=== PATIENT | female | born 1935 | race Caucasian/White ===

== ENCOUNTER 2016-09-26 14:15 | Emergency (ER) | payer OTHER ==
[~2016-09-26] VITALS: Ht 154.9 cm; Wt 97.3 kg
[~2016-09-26 14:15] MED LIST: ALBUTEROL17 G1 IH; Augmentin PO; BENAZEPRIL HCL40 MG PO; BISOPROLOL-HCT1 EAC1 PO; DICLOFENAC SODI75 MG PO; Diabeta,Micronase PO; ECOTRIN325 MG PO; FUROSEMIDE80 MG PO; GABAPENTIN300 MG PO; GLUMETZA500 M1 PO; JANUMET XR 50-1 EACH PO; Janumet 50/500 PO; KLOR-CON 1010 ME1 PO; LASIX40 MG PO; Micro-K,K-Tab,K-Dur, PO; NEURONTIN300 MG PO; NIASPAN,SLO-N1000 MG PO; NIASPAN500 MG PO; NORVASC10 MG PO; PRAVASTATIN SOD80 MG PO; PRINIVIL20 MG PO; PROVENTIL HFA6.7 GM IH; SIMVASTATIN40 MG PO; TYLENOL EXTRA500 MG PO; VITAMIN D-32000 UNI1 PO; Zebeta PO
[2016-09-26 17:04] LABS: HEMATOCRIT 32.1 % (36.0-46.0); MCH 26.8 PG (29.0-34.0); MCHC 29.9 G/DL (30.0-36.0); MCV 89.7 FL (83-99); MEAN PLAT.VOLUME 10.1 uM^3 (9.5-12.4); PLATELET COUNT 145 K/uL (156-360); RBC DIS.WIDTH-CV 14.8 % (11.8-14.6); RBC DIS.WIDTH-SD 48.2 % (39-53); RED BLOOD COUNT 3.58 M/uL (3.80-5.20); WHITE BLOOD COUNT 5.4 K/uL (4.1-10.2)
[2016-09-26 17:13] LABS: CHLORIDE 107 mEq/L (99-109); POTASSIUM 3.9 mEq/L (3.7-5.4); SODIUM 145 mEq/L (136-147)
[2016-09-26 17:15] LABS: GLUCOSE 190 mg/dL (70-99)
[2016-09-26 17:16] LABS: ANION GAP 12 MEQ/L (2-14)
[2016-09-26 17:19] LABS: GFR ESTIMATE (CALCULATED) 33 mL/min/
[2016-09-26 17:20] LABS: UREA NITROGEN (BUN) 36 mg/dL (9-23)
[2016-09-26] MEDS ORDERED: CLEOCIN300 MG PO (17:24)
[2016-09-26 17:41] VITALS: BP 176/62
== END 2016-09-26 18:04 | disposition home or self-care (01) ==
LOC: EME 14:15
PROVIDERS: Emergency Medicine
DX: L03.116 Cellulitis of left lower limb (principal); L03.115 Cellulitis of right lower limb; E11.9 Type 2 diabetes mellitus without complications; E78.5 Hyperlipidemia, unspecified; I10 Essential (primary) hypertension; Z96.651 Presence of right artificial knee joint; Z85.3 Personal history of malignant neoplasm of breast
CPT/HCPCS: 80048; 83605; 85027; 87040; 99281; 99285; A6212